=== PATIENT | female | born 1960 | race Caucasian/White ===

== ENCOUNTER 2018-06-15 07:49 | Emergency (ER) | payer BC ==
--- NOTE | 2018-06-15 08:43 | RAD ---
HISTORY: ROLLED ANKLE YESTERDAY, PAIN COMPARISONS: None VIEWS: 3, Frontal, lateral, and oblique views of the left ankle FINDINGS: BONE DENSITY: Normal. BONES: There is no displaced fracture. JOINTS: There is no arthropathy. ALIGNMENT: There is no dislocation. SOFT TISSUES: Unremarkable. OTHER FINDINGS: None. IMPRESSION: NO ACUTE OSSEOUS INJURY. IF SYMPTOMS PERSIST, RECOMMEND REPEAT IMAGING.
[2018-06-15 10:03] VITALS: BP 146/99
--- NOTE | 2018-06-15 10:08 | RAD ---
HISTORY: FALL YESTERDAY, PAIN, left foot, ankle pain COMPARISONS: Ankle dated June 15, 2018 VIEWS: 3, Frontal, lateral, and oblique views of the left foot FINDINGS: BONE DENSITY: Normal. BONES: There is an oblique, slightly displaced fracture of the distal fifth metatarsal. JOINTS: There is no arthropathy. ALIGNMENT: There is no dislocation. SOFT TISSUES: Unremarkable. OTHER FINDINGS: None. IMPRESSION: OBLIQUE, SLIGHTLY DISPLACED FRACTURE OF THE DISTAL FIFTH METATARSAL
--- NOTE | 2018-06-15 10:17 | UC ---
Lower Extremity/Ankle HPI - HPI Summary HPI Summary: While it on her deck yesterday patient slipped down a step and rolled left ankle. Now has bruising and pain on her forefoot. Unable to weight-bear without severe pain. - History of Current Complaint Chief Complaint: UCLowerExtremity Stated Complaint: L FOOT INJURY Time Seen by Provider: 06/15/18 08:06 Hx Obtained From: Patient Onset/Duration: Sudden Onset, Lasting Days - 1 DAY, Still Present Severity Initially: Moderate Severity Currently: Moderate Pain Intensity: 5 Pain Scale Used: 0-10 Numeric Aggravating Factor(s): Standing, Ambulation Alleviating Factor(s): Rest, Elevation Able to Bear Weight: No - Allergies/Home Medications Allergies/Adverse Reactions: Allergies Allergy/AdvReac Type Severity Reaction Status Date / Time Penicillins Allergy Rash Verified 06/15/18 08:04 Home Medications: Home Medications Ibuprofen 400 mg PO 06/15/18 [History] PMH/Surg Hx/FS Hx/Imm Hx Previously Healthy: Yes - Surgical History Surgical History: Yes Surgery Procedure, Year, and Place: vein stripping - Family History Known Family History: Positive: Hypertension - Social History Alcohol Use: Occasionally Substance Use Type: None Smoking Status (MU): Never Smoked Tobacco Review of Systems Constitutional: Negative Skin: Bruising Respiratory: Negative Cardiovascular: Negative Gastrointestinal: Negative Musculoskeletal: Arthralgia, Decreased ROM All Other Systems Reviewed And Are Negative: Yes Physical Exam Triage Information Reviewed: Yes Appearance: Well-Appearing, No Pain Distress, Well-Nourished Vital Signs: Initial Vital Signs Temp 97.0 F 06/15/18 07:58 Pulse 82 06/15/18 07:58 Resp 18 06/15/18 07:58 BP 152/86 06/15/18 07:58 Pulse Ox 100 06/15/18 07:58 Vital Signs Reviewed: Yes Eyes: Positive: Conjunctiva Clear ENT: Positive: Hearing grossly normal Neck: Positive: Supple Respiratory: Positive: No respiratory distress, No accessory muscle use Cardiovascular: Positive: Pulses Normal Abdomen Description: Positive: Soft Musculoskeletal: Positive: No Edema, ROM Limited @ - LEFT FOOT, Other: - TTP LEFT FOOT OVERLYING 5TH METATARSAL Neurological: Positive: Alert Psychological: Positive: Age Appropriate Behavior Skin: Positive: Other - BRUISING LEFT FOOT Diagnostics - Radiology LEFT FOOT XRAYS Xray Interpretation: Positive (See Comments) - OBLIQUE, SLIGHTLY DISPLACED FRACTURE OF THE DISTAL FIFTH METATARSAL Radiology Interpretation Completed By: Radiologist Lower Extremity Course/Dx - Differential Dx/Diagnosis Provider Diagnoses: OBLIQUE, SLIGHTLY DISPLACED FRACTURE OF THE DISTAL FIFTH METATARSAL Discharge - Sign-Out/Discharge Documenting (check all that apply): Patient Departure - Discharge Plan Condition: Stable Disposition: HOME Patient Education Materials: Foot Fracture in Adults (ED) Referrals: Lindsey Fajardo MD [Primary Care Provider] - If Needed Paola Smith MD [Medical Doctor] - 3 Days Additional Instructions: XRAYS TODAY SHOW OBLIQUE, SLIGHTLY DISPLACED FRACTURE OF THE DISTAL FIFTH METATARSAL. WEAR THE CAM BOOT AND USE CRUTCHES FOR MOBILITY. YOU MUST BE NONWEIGHTBEARING UNTIL SEEN BY ORTHOPEDICS. IBUPROFEN NEEDED FOR DISCOMFORT. REST, ICE, ELEVATE. YOUR BLOOD PRESSURE WAS ELEVATED TODAY (146/99). THIS MAY BE DUE TO YOUR ACUTE CONDITION. MONITOR AND FOLLOW-UP WITH YOUR PCP WITHIN 4 WEEKS IF IT HAS NOT RETURNED TO NORMAL. - Billing Disposition and Condition Condition: STABLE Disposition: Home
== END 2018-06-15 10:23 | disposition home or self-care (01) ==
LOC: UCEAST 07:49
DX: S92.352A Displaced fracture of fifth metatarsal bone, left foot, initial encounter for closed fracture (principal); Z88.0 Allergy status to penicillin; W10.9XXA Fall (on) (from) unspecified stairs and steps, initial encounter
CPT/HCPCS: 99213; G0463